=== PATIENT | male | born 1980 | race Caucasian/White ===

== ENCOUNTER → 2020-01-25 10:51 | Outpatient (CLI) | payer OTHER, SELFPAY ==
[2020-01-28 03:06] LABS: Almond <0.10 kU/L (Class 0); Clam <0.10 kU/L (Class 0); Codfish <0.10 kU/L (Class 0); Corn <0.10 kU/L (Class 0); Egg, White <0.10 kU/L (Class 0); Egg, Yolk <0.10 kU/L (Class 0); Lobster 0.24 kU/L (Class 0/I); Milk (Cow) 0.14 kU/L (Class 0/I); Peanut <0.10 kU/L (Class 0); SCALLOP <0.10 kU/L (Class 0); SESAME SEED <0.10 kU/L (Class 0); Salmon <0.10 kU/L (Class 0); Shrimp 0.45 kU/L (Class I); Soybean <0.10 kU/L (Class 0); Walnut, (Food) <0.10 kU/L (Class 0); Wheat <0.10 kU/L (Class 0)
[2020-01-28 04:45] LABS: Tuna <0.10 kU/L (Class 0)
[2020-01-28 14:58] LABS: Crab 0.37 kU/L (Class I); Peanut <0.10 kU/L (Class 0)
== END ==
PROVIDERS: PCP Family Medicine; Referring Provider Otolaryngology Otolaryngology/Facial Plastic Surgery; Visit Provider Otolaryngology Otolaryngology/Facial Plastic Surgery
DX: T78.40XA Allergy, unspecified, initial encounter (principal)
CPT/HCPCS: 36415; 86003